=== PATIENT | female | born 1945 | race Caucasian/White ===

== ENCOUNTER 2022-10-24 07:07 | Outpatient (CLI) | payer MEDICARE, MEDICAID, SELFPAY ==
--- NOTE | 2022-10-24 | USCV_ITS ---
Malini Akhtar Age: 77 Gender: F : 1945 Exam Date: 10/24/2022 07:32 Ordering Phys: Candy Biswas Technologist: Antonia Toscano [place] [facility] [place]: Murmur BP: 200 / 84 HR: 66 Rhythm: Sinus Technical Quality: Adequate MEASUREMENTS (Male / Female) Normal Values 2D ECHO LV Diastolic Diameter PLAX 4.4 cm 4.2 - 5.9 / 3.9 - 5.3 cm LV Systolic Diameter PLAX 3.8 cm LV Chamber Size 4.0 cm IVS Diastolic Thickness 1.2 cm 0.6 - 1.0 / 0.6 - 0.9 cm IVS Systolic Thickness 1.4 cm LVPW Diastolic Thickness 1.3 cm 0.6 - 1.0 / 0.6 - 0.9 cm LVPW Systolic Thickness 1.6 cm RV Chamber Size 2.6 cm LVOT Diameter 2.0 cm LV Ejection Fraction 2D Teich 20.4 % LV Ejection Fraction MOD 2C 52.8 % LV Ejection Fraction 2C AL 50.4 % LA Diameter 4.2 cm LA Width 2.6 cm LA Height 3.6 cm RA Width 3.2 cm RA Height 3.6 cm Aorta at Sinotubular Diameter 2.4 cm IVC Diameter 1.4 cm M-MODE Aortic Annulus Diameter 2.9 cm LA Ao Ratio MM 1.7 MV E Point Septal Separation 0.7 cm DOPPLER AV Peak Velocity 217.0 cm/s LVOT Peak Velocity 73.0 cm/s AV Area Cont Eq vti 1.3 cm squared AV Area Cont Eq pk 1.1 cm squared MV Peak Velocity 139.0 cm/s MV Area PHT 4.3 cm squared Mitral E to A Ratio 1.1 MV E' Velocity 54.0 cm/s Mitral E to MV E' Ratio 9.8 Mitral E to LV E' Lateral Ratio 11.0 Mitral E to LV E' Septal Ratio 8.9 TR Peak Velocity 255.6 cm/s TR Peak Gradient 26.1 mmHg TR Mean Velocity 204.8 cm/s TR Mean Gradient 17.9 mmHg TR Velocity Time Integral 79.3 cm TV Peak E Velocity 59.0 cm/s Right Atrial Pressure 3.0 mmHg Pulmonary Artery Systolic Pressu 29.1 mmHg RV Acceleration Time 0.1 s RV Ejection Time 0.4 s RV AcT/ET 0.3 FINDINGS Left Ventricle Normal left ventricular size, systolic function and mildly increased wall thickness, with no regional wall motion abnormalities. Left ventricular ejection fraction is estimated at 60 %. Grade II diastolic dysfunction, moderately elevated filling pressures. Right Ventricle Normal right ventricular size and systolic function. Right Atrium Normal right atrial size. Left Atrium Moderately increased left atrial size. Mitral Valve Moderate mitral annular calcification. Thickened mitral valve. No mitral valve stenosis. Moderate to severe mitral valve regurgitation. Aortic Valve Moderately thickened calcified aortic valve (especially noncoronary cusp). Aortic valve sclerosis. No aortic valve stenosis. Trace aortic valve regurgitation. Tricuspid Valve Structurally normal tricuspid valve. No tricuspid valve stenosis. Pulmonic Valve Pulmonic valve not well visualized. No pulmonary valve stenosis. Trace pulmonary valve regurgitation. Pericardium No pericardial effusion. Prominent epicardial fat. Aorta Normal size aortic root and proximal ascending aorta. IVC Normal IVC dimension with >50% respiratory change of the inferior vena cava. CONCLUSIONS 1. Normal left ventricular size, systolic function and mildly increased wall thickness, with no regional wall motion abnormalities. Left ventricular ejection fraction is estimated at 60 %. Grade II diastolic dysfunction, moderately elevated filling pressures. 2. Moderate mitral annular calcification. Moderate to severe mitral valve regurgitation. 3. Aortic valve sclerosis without significant stenosis. 4. No prior similar studies to compare. Aleta Jean Baptiste MD (Electronically Signed) Final Date: 24 October 2022 13:04 S
--- NOTE | 2022-10-24 | USCV_ITS ---
Malini Akhtar Age: 77 Gender: F : 1945 Exam Date: 10/24/2022 08:01 Ordering Phys: Candy Biswas Technologist: Antonia Toscano Exam Location: [facility] [place] Indication: HTN Aortic Velocity @ SMA (cm/s) 66.3 RIGHT KIDNEY LEFT KIDNEY Velocity (cm/s) Velocity (cm/s) Sys/Das Sys/Das Resistive Index Resistive Index 62.1 / 20.9 0.66 Proximal Renal Artery 23.2 / 4.1 0.82 46.0 / 8.4 0.82 Mid Renal Artery 22.6 / 5.0 0.78 54.3 / 13.7 0.75 Distal Renal Artery 25.7 / 15.0 0.41 62.1 / 12.5 0.80 Hilar 28.5 / 8.8 0.69 18.9 / 7.1 0.63 Upper Pole 16.6 / 4.1 0.75 21.3 / 6.3 0.70 Mid Pole 30.1 / 9.1 0.70 20.0 / 6.1 0.70 Lower Pole 23.8 / 8.1 0.66 0.90 Renal Aortic Ratio 0.39 Accleration Index (cm/sec2) 636.00 Hilar 206.00 141.00 Upper Pole 118.00 150.00 Mid Pole 484.00 112.00 Lower Pole 350.00 100.2 Kidney Length (mm) 96.3 CONCLUSIONS No hydronephrosis either kidney No sonographic evidence of hemodynamically significant renal artery stenosis bilaterally. Easton Holcomb MD (Electronically Signed) Final Date: 24 October 2022 11:21 S
== END 2022-10-24 07:08 | disposition home or self-care (01) ==
PROVIDERS: PCP Nurse Practitioner Family; Visit Provider Nurse Practitioner Family
DX: I10 Essential (primary) hypertension (principal); R01.1 Cardiac murmur, unspecified; I34.0 Nonrheumatic mitral (valve) insufficiency
CPT/HCPCS: 93306; 93975

== ENCOUNTER → 2022-11-04 09:49 | Outpatient (BNVA) | payer MEDICARE, SELFPAY | PROVIDERS: PCP Nurse Practitioner Family; Visit Provider Internal Medicine Cardiovascular Disease | DX: R01.1 Cardiac murmur, unspecified (principal); I08.1 Rheumatic disorders of both mitral and tricuspid valves; E78.00 Pure hypercholesterolemia, unspecified; F17.210 Nicotine dependence, cigarettes, uncomplicated; R94.31 Abnormal electrocardiogram [ECG] [EKG] | CPT/HCPCS: 93005; 99204 ==

== ENCOUNTER 2022-11-27 11:35 | Outpatient (CLI) | payer MEDICARE, MEDICAID, SELFPAY ==
--- NOTE | 2022-11-27 11:42 | CT_ITS ---
WS: [id number] LDCT LUNG CANCER SCREENING TECHNIQUE: Noncontrast CT of the chest with coronal and sagittal reformatted images. CLINICAL INFORMATION: NICOTINE DEPENDENCE,CIGARETTES COMPARISON: None. DLP: 48.81 mGy.cm DIvol: Mean CTDIvol: 0.80 (mGy) All CT scans at [facility] use at least one of these dose optimization techniques: automat ed exposure control; mA and/or kV adjustment per patient size (includes targeted exams where dose is matched to clinical indication); or iterative reconstruction. FINDINGS: No suspicious pulmonary parenchymal opacities. No acute pulmonary infiltrates. Aortic calcification. Normal caliber thoracic aorta. Coronary calcification. No mediastinal or hilar lymphadenopathy. A few calcified mediastinal lymph nodes. No axillary lymphadenopathy. Mild thoracic curve. Mild thoracic kyphosis. A few calcified granulomas. Adrenal glands are normal. Normal GE junction. IMPRESSION: CT/CT lung screening [id number] LUNG-RADS: 1-Negative FOLLOW UP: 12 Month: Continue annual screening with LDCT
== END 2022-11-27 11:36 | disposition home or self-care (01) ==
PROVIDERS: PCP Nurse Practitioner Family; Visit Provider Nurse Practitioner Family
DX: F17.210 Nicotine dependence, cigarettes, uncomplicated (principal); Z12.2 Encounter for screening for malignant neoplasm of respiratory organs
CPT/HCPCS: 71271

== ENCOUNTER → 2023-05-20 10:06 | Outpatient (BNVA) | payer MEDICARE, SELFPAY | PROVIDERS: PCP Nurse Practitioner Family; Visit Provider Nurse Practitioner Family | DX: I10 Essential (primary) hypertension (principal); I34.0 Nonrheumatic mitral (valve) insufficiency; F17.210 Nicotine dependence, cigarettes, uncomplicated | CPT/HCPCS: 99214 ==

== ENCOUNTER 2023-05-27 09:30 | Outpatient (CLI) | payer MEDICARE, SELFPAY ==
--- NOTE | 2023-05-27 10:00 | USCV_ITS ---
Hermilo Malini Age: 78 Gender: F : 1945 Exam Date: 05/27/2023 09:38 Ordering Phys: Alesia Penny Technologist: AXEL Exam Location: [facility] – [place] Indication: mr BP: / HR: 50 Rhythm: Sinus Technical Quality: Adequate MEASUREMENTS (Male / Female) Normal Values 2D ECHO LV Diastolic Diameter PLAX 4.7 cm 4.2 - 5.9 / 3.9 - 5.3 cm IVS Diastolic Thickness 1.8 cm 0.6 - 1.0 / 0.6 - 0.9 cm IVS Systolic Thickness 1.7 cm LVPW Diastolic Thickness 1.3 cm 0.6 - 1.0 / 0.6 - 0.9 cm LVPW Systolic Thickness 1.7 cm LVOT Diameter 1.8 cm LV Ejection Fraction 2D Teich 69.6 % LV Ejection Fraction MOD 2C 57.0 % LV Ejection Fraction 2C AL 57.4 % RA Systolic Volume 4C AL 25.3 ml RA Systolic Volume 4C MOD 24.0 ml Aorta at Sinotubular Diameter 2.1 cm M-MODE LA Ao Ratio MM 1.7 AV Cusp Separation MM 2.1 cm DOPPLER AV Peak Velocity 227.0 cm/s LVOT Peak Velocity 89.0 cm/s AV Area Cont Eq vti 1.3 cm squared AV Area Cont Eq pk 1.0 cm squared MV Peak Velocity 103.3 cm/s MV Area PHT 3.7 cm squared Mitral E to A Ratio 1.0 TR Peak Velocity 212.5 cm/s TR Peak Gradient 18.1 mmHg TR Mean Velocity 118.0 cm/s TR Mean Gradient 6.7 mmHg TR Velocity Time Integral 52.5 cm TV Peak E Velocity 71.0 cm/s Right Atrial Pressure 3.0 mmHg Pulmonary Artery Systolic Pressu 21.1 mmHg PV Peak Velocity 140.0 cm/s FINDINGS Left Ventricle Mild to moderate concentric left ventricular hypertrophy with ejection fraction of 57%.no regional wall motion abnormalities. Hypokinetic basal inferior wall segment.Grade II/IV diastolic dysfunction, moderately elevated filling pressures. Right Ventricle The right ventricle is normal in size and function. Right Atrium The right atrium is normal in size. Left Atrium Mildly increased left atrial size. Mitral Valve Thickened mitral valve. Moderate mitral valve regurgitation. Aortic Valve .Moderate aortic valve calcification. [id number] aortic valve stenosis. Aortic valve area was calculated to be 1.3 cm squared Tricuspid Valve Trace tricuspid valve regurgitation. Pulmonic Valve Trace pulmonary valve regurgitation. Pericardium No pericardial effusion. Aorta Normal aortic annulus size. IVC Normal inferior vena cava. CONCLUSIONS Mild to moderate concentric left ventricular hypertrophy with ejection fraction of 57%.no regional wall motion abnormalities. Hypokinetic basal inferior wall segment.Grade II/IV diastolic dysfunction, moderately elevated filling pressures. Thickened mitral valve. Moderate mitral valve regurgitation. Mildly increased left atrial size. .Moderate aortic valve calcification. [id number] aortic valve stenosis. Aortic valve area was calculated to be 1.3 cm squared. Peak velocity of 2.27 m/s Trace tricuspid valve regurgitation. Estimated PA pressure within normal limit There is no pericardial effusion. There are no intracardiac masses. Compared to the study from 10/24/2022, there may not be a significant change Dr Crow Velazco MD [facility] (Electronically Signed) Final Date: 01 June 2023 14:05 S
== END 2023-05-27 09:31 | disposition home or self-care (01) ==
LOC: RAD 09:31
PROVIDERS: PCP Nurse Practitioner Family; Visit Provider Nurse Practitioner Family
DX: I08.0 Rheumatic disorders of both mitral and aortic valves (principal)
CPT/HCPCS: 93306